=== PATIENT | female | born 1955 | race Caucasian/White ===

== ENCOUNTER → 2016-12-19 | Outpatient (CLI) | payer BC ==
--- NOTE | 2016-12-19 12:29 | DI ---
Indication: ITS.REASON: M25.512 LEFT SHOULDER PAIN PROCEDURE: MRI SHOULDER LEFT W/O CONTRAST: Encounter: Initial Comparison: None Technique: Multiplanar multisequence MR imaging of the left shoulder was performed without contrast. Findings: The long head biceps tendon is intact and located within the bicipital groove. Subscapularis tendon is intact. The supraspinatus tendon shows some superficial partial thickness tearing of the bursal surface at the anterior aspect. No full-thickness or complete tear identified. There is edema within the supraspinatus muscle more proximally. The infraspinatus and teres minor tendons are normal. Large subacromial subdeltoid bursal effusion. No acute fracture. Moderate acromioclavicular degenerative change. Degenerative superior labral tearing. Muscular bulk is normal. No other areas of muscular tearing identified. Impression: 1. Partial tearing of the supraspinatus tendon with intramuscular tearing. 2. Severe subacromial subdeltoid bursitis. 3. Degenerative superior labral tearing. .
== END ==
LOC: IMA 09:57
PROVIDERS: ATTEND Family Medicine Sports Medicine
DX: S46.012A Strain of muscle(s) and tendon(s) of the rotator cuff of left shoulder, initial encounter (principal); X58.XXXA Exposure to other specified factors, initial encounter; Y93.9 Activity, unspecified; Y92.9 Unspecified place or not applicable; Y99.9 Unspecified external cause status; M75.52 Bursitis of left shoulder; M24.812 Other specific joint derangements of left shoulder, not elsewhere classified; M25.512 Pain in left shoulder